=== PATIENT | male | born 1945 | race American Indian/Alaskan Native ===

== ENCOUNTER 2016-09-19 16:20 | Emergency (ER) | payer MEDICARE ==
[2016-09-19 16:28] VITALS: BMI 35.5
[2016-09-19] MEDS ORDERED: Sodium Chloride 0.9% 1,000 ML IV ONE (16:58)
--- NOTE | 2016-09-19 17:08 | C.PDOC ---
History Of Present Illness <Alee Cherry - Last Filed: 09/19/16 18:58> <Jhonatan Pelayo - Last Filed: 09/19/16 20:10> Patient is a 71 year old male who presents to the ER with a complaint of sharp, non-radiating right abdominal pain intermittently since yesterday. Patient states he had abdominal surgery by Dr. Moe in June for hernia. Patient states he took 2 Advil yesterday and today, but felt no relief. Patient notes a recent change in diet for weight loss. Denies nausea, vomiting, diarrhea, groin pain, dysuria, or fever. (Alee Cherry) History Per: Patient History/Exam Limitations: no limitations Onset/Duration Of Symptoms: Days (Since yesterday), Intermittent Episodes Pain Scale Rating Of: 5 Location Of Pain/Discomfort: RLQ Radiation Of Pain To:: None Quality Of Discomfort: Sharp, Stabbing, "Pain" Associated Symptoms: denies: Fever, Nausea, Vomiting, Diarrhea, Constipation <Alee Cherry - Last Filed: 09/19/16 18:58> <Jhonatan Pelayo - Last Filed: 09/19/16 20:10> Time Seen by Provider: 09/19/16 16:48 Chief Complaint (Nursing): Abdominal Pain Past Medical History Reviewed: Historical Data, Nursing Documentation, Vital Signs - Medical History PMH: Asthma, CAD, Cardia Arrhythmia, Diabetes, HTN, Hypercholesterolemia Other Surgeries: incarcerated hernia repair Family History: States: Unknown Family Hx, Diabetes - Social History Hx Tobacco Use: No Hx Alcohol Use: No Hx Substance Use: No - Immunization History Hx Tetanus Toxoid Vaccination: No Hx Influenza Vaccination: Yes Hx Pneumococcal Vaccination: Yes <Alee Cherry - Last Filed: 09/19/16 18:58> <Jhonatan Pelayo - Last Filed: 09/19/16 20:10> Vital Signs: Last Vital Signs Temp 98.3 F 09/19/16 16:29 Pulse 67 09/19/16 16:29 Resp 18 09/19/16 16:29 BP 194/85 H 09/19/16 16:29 Pulse Ox 97 09/19/16 19:02 - [facility] Procedures CONTINUOUS INVASIVE MECHANICAL VENTILATION =/>96 CONSEC HRS (08/02/13) CORONAR ARTERIOGR-2 CATH (08/02/13) EXCISION OF LESSER OMENTUM, OPEN APPROACH (06/21/16) INSERT ENDOTRACHEAL TUBE (08/02/13) REPAIR ABDOMINAL WALL, OPEN APPROACH (06/21/16) REPAIR TRANSVERSE COLON, OPEN APPROACH (06/21/16) RT & LT HEART ANGIOCARD (08/02/13) RT/LEFT HEART CARD CATH (08/02/13) TEMPORARY TRACHEOSTOMY (08/02/13) VENOUS CATHETERIZATION NEC (08/02/13) Review Of Systems Constitutional: Negative for: Fever, Weakness, Malaise Cardiovascular: Negative for: Chest Pain, Palpitations Respiratory: Negative for: Cough, Shortness of Breath Gastrointestinal: Positive for: Abdominal Pain (RLQ). Negative for: Nausea, Vomiting, Diarrhea Genitourinary: Negative for: Dysuria, Hematuria, Penile Discharge, Scrotal Pain , Penile Pain Skin: Negative for: Rash Neurological: Negative for: Headache, Dizziness <Alee Cherry Last Filed: 09/19/16 18:58> Physical Exam - Physical Exam Appears: Well, Non-toxic, No Acute Distress Skin: Normal Color, Warm, Dry Head: Atraumatic, Normacephalic Eye(s): bilateral: Normal Inspection, EOMI Nose: Normal, No Flaring Oral Mucosa: Moist Neck: Normal ROM Chest: Symmetrical, No Tenderness Cardiovascular: Rhythm Regular, No Murmur Respiratory: Normal Breath Sounds, No Rales, No Rhonchi, No Wheezing Gastrointestinal/Abdominal: Bowel Sounds (Normal active), Soft, Tenderness ( mildly tender to RLQ with deep palpation), No Distention, No Guarding, No Hernia , Other (Umbilical surgical scar) Back: Normal Inspection Extremity: Bilateral: Atraumatic, Normal Color And Temperature, Normal ROM Neurological/Psych: Oriented x3, Normal Speech, Other (No focal deficits) <Alee Cherry Last Filed: 09/19/16 18:58> ED Course And Treatment - Laboratory Results Result Diagrams: 09/19/16 17:10 09/19/16 17:10 Lab Interpretation: No Acute Changes O2 Sat by Pulse Oximetry: 97 (Room air) Pulse Ox Interpretation: Normal <Alee Cherry Last Filed: 09/19/16 18:58> - Laboratory Results Result Diagrams: 09/19/16 17:10 09/19/16 17:10 - CT Scan/US CT abd/pelv. Other Rad Studies (CT/US): Read By Radiologist, Radiology Report Reviewed CT/US Interpretation: Right paramedial fat containing small hernia just superior to the right of the umbilicus. Progress Note: Pt was signed out to me at 7pm by Dr. Lockett/TAVIA Cherry to f/up CT scan of abdomen/pelvis. Pt is now asymptomatic. No abdomenal pain or tenderness. No hernia felt on my physical exam. Reassessment Condition: Improved <Jhonatan Pelayo E - Last Filed: 09/19/16 20:10> Medical Decision Making <Alee Cherry - Last Filed: 09/19/16 18:58> <Jhonatan Pelayo E - Last Filed: 09/19/16 20:10> Medical Decision Making: Impression: 71 year old male with RLQ abdominal pain Plan: * Abd/pelvis CT w/ IV contrast * Blood work * IV fluids * Toradol * Urinalysis Progress: Labs reviewed showing no leukocytosis or other abnormality. 183 UA still pending, CT performed and awaiting report [address] Case signed out to DR Pelayo pending CT and UA results (Alee Cherry) Disposition - Disposition Disposition Time: 19:00 - POA Present On Arrival: None <Alee Cherry - Last Filed: 09/19/16 18:58> Counseled Patient/Family Regarding: Studies Performed, Diagnosis, Need For Followup - Disposition Disposition Time: 20:07 <Jhonatan Pelayo - Last Filed: 09/19/16 20:10> - Disposition Referrals: Bruno Moe MD [Staff Provider] - Brandon Lou MD [Staff Provider] - Disposition: HOME/ ROUTINE Condition: IMPROVED Additional Instructions: Follow up with your doctor and your surgeon for further evaluation and treatment. Return to the ER if you develop fever, vomiting, worsening of symptoms or if you have any other concerns. Instructions: Ventral Hernia (ED) - Clinical Impression Clinical Impression: Resolved abdominal pain - Scribe Statement The provider has reviewed the documentation as recorded by the Scribe <Alee Cherry - Last Filed: 04/18/17 18:58> <Jhonatan Pelayo - Last Filed: 09/19/16 20:10> - Scribe Statement Calrton Huerta All medical record entries made by the Scribe were at my direction and personally dictated by me. I have reviewed the chart and agree that the record accurately reflects my personal performance of the history, physical exam, medical decision making, and the department course for this patient. I have also personally directed, reviewed, and agree with the discharge instructions and disposition. (Alee Cherry) Physician Patient Turnover Patient Signed Over To: Jhonatan Pelayo Handoff Comments: Pending CT and UA results, reeval and dispo <Alee Cherry - Last Filed: 09/19/16 18:58>
[2016-09-19 17:18] LABS: BASO % 0.5 % (0.0-2.0); EOS # 0.3 K/uL (0.0-0.7); EOS % 3.1 % (0.0-4.0); HEMATOCRIT 39.7 % (35.0-51.0); LYMPH # 1.8 K/uL (1.0-4.3); LYMPH % 22.2 % (20.0-40.0); MEAN CELL VOLUME 78.6 fL (80.0-94.0); MEAN CORPUSCULAR HEMOGLOBIN 25.1 pg (27.0-31.0); MEAN CORPUSCULAR HGB CONC 31.9 g/dL (33.0-37.0); MEAN PLATELET VOLUME 10.6 fL (7.2-11.7); MONO # 0.8 K/uL (0.0-0.8); MONO % 9.4 % (0.0-10.0); NRBC % 0.1 % (0.0-2.0); RED CELL DISTRIBUTION WIDTH 16.3 % (11.5-14.5); WHITE BLOOD COUNT 8.2 K/uL (4.8-10.8)
[2016-09-19] MEDS ORDERED: Sodium Chloride 0.9% 1,000 ML ONE (17:23)
[2016-09-19 18:02] LABS: CHLORIDE 100 mmol/L (98-107); POTASSIUM 4.3 mmol/L (3.6-5.2); SODIUM 138 mmol/L (132-148)
[2016-09-19 18:04] LABS: AST/SGOT 36 U/L (17-59); BILIRUBIN,TOTAL 0.5 mg/dL (0.2-1.3); CARBON DIOXIDE 26 mmol/L (22-30); GFR AFRICAN-AMERICAN > 60
[2016-09-19 18:05] LABS: ALB/GLOB RATIO 1.1 (1.0-2.1); ALKALINE PHOSPHATASE 50 U/L (38-126); ALT/SGPT 24 U/L (21-72); BLOOD UREA NITROGEN 12 mg/dL (9-20); GLUCOSE,RANDOM 109 mg/dL (75-110); TOTAL PROTEIN 7.3 g/dL (6.3-8.3)
[2016-09-19 19:11] LABS: RBC URINE < 1 /hpf (0-3); URINE BILIRUBIN NEGATIVE (NEGATIVE); URINE BLOOD NEGATIVE (NEGATIVE); URINE COLOR Colorless (YELLOW); URINE GLUCOSE (UA) NORMAL (Normal); URINE KETONE NEGATIVE (NEGATIVE); URINE LEUKOCYTE ESTERASE NEG Leu/uL (Negative); URINE PROTEIN NEGATIVE (NEGATIVE); URINE UROBILINOGEN NORMAL mg/dL (0.2-1.0); WBC URINE < 1 /hpf (0-5)
[2016-09-19 20:14] VITALS: PULSE 70; RESP 20; TEMP 98.2; O2SAT 96
[2016-09-19] MEDS ORDERED: Enalaprilat 2.5 MG/2 ML IVP STA (20:18)
[2016-09-19] MEDS ORDERED: Enalaprilat 2.5 MG/2 ML ONE (20:43)
[2016-09-19 20:56] VITALS: BP 155/73
--- NOTE | 2016-09-20 08:48 | CT ---
PROCEDURE: CT Abdomen and Pelvis with contrast HISTORY: RLQ pain, status post hernia repair in June 2016. COMPARISON: None. TECHNIQUE: CT scan of the abdomen and pelvis was performed after intravenous administration of contrast. Oral contrast was not administered. Coronal and sagittal reformatted images were obtained. Contrast dose: 100 mL Visipaque 320 Radiation dose: Total exam DLP = 1135.74 mGy-cm. This CT exam was performed using one or more of the following dose reduction techniques: Automated exposure control, adjustment of the mA and/or kV according to patient size, and/or use of iterative reconstruction technique. FINDINGS: LOWER THORAX: There is dependent atelectasis in both lung bases. LIVER: The liver is normal in size and there is diffuse low attenuation. No intrahepatic biliary ductal dilatation or focal lesion. GALLBLADDER AND BILE DUCTS: There are no calcified gallstones. PANCREAS: The pancreas is normal in size and there is homogeneous enhancement without focal mass or ductal dilatation. SPLEEN: The spleen is normal in size and there is homogeneous enhancement. No focal lesion. ADRENALS: Both adrenal glands are normal in size. There is a 2.5 cm nodule in the left adrenal gland. KIDNEYS AND URETERS: The kidneys are normal in size and there is homogeneous enhancement without hydronephrosis or focal mass. VASCULATURE: There are advanced atherosclerotic aortoiliac calcifications. No evidence of aortic aneurysm. BOWEL: The small bowel loops are normal in caliber. There is left colonic diverticulosis without CT evidence for acute diverticulitis. APPENDIX: Normal appendix. PERITONEUM: No free fluid. No free air. LYMPH NODES: No enlarged lymph nodes. BLADDER: The urinary bladder is well distended and normal in appearance. REPRODUCTIVE: Unremarkable. BONES: There is multilevel degenerative disc disease, worse at L2-3 with Schmorl's nodes and endplate sclerosis. No acute fracture. OTHER FINDINGS: There is a small sliding hiatal hernia. There is a supraumbilical right paramedian fat containing ventral hernia. IMPRESSION: 1. No acute abdominal or pelvic abnormality. Left colonic diverticulosis without CT evidence for acute diverticulitis. No CT evidence for acute appendicitis. 2. 2.5 cm left adrenal gland nodule is incompletely characterized in the absence of noncontrast images. A dedicated CT scan/MRI without and with intravenous contrast with adrenal gland protocol would be helpful for further characterization. 3. Small sliding hiatal hernia. Small supraumbilical right paramedian fat containing ventral hernia. A preliminary report was provided by [facility] services.
== END 2016-09-19 21:07 | disposition home or self-care (01) ==
LOC: C.ER 16:20
DX: R10.31 Right lower quadrant pain (principal); I10 Essential (primary) hypertension
CPT/HCPCS: 74177; 80053; 81001; 83690; 85025; 96361; 96374; 96375; 99285; J1885; J7040

== ENCOUNTER 2017-07-18 09:31 | Emergency (ER) | payer MEDICARE ==
[2017-07-18 09:31] VITALS: BMI 33.5
[2017-07-18 09:43] VITALS: RESP 18
[2017-07-18] MEDS ORDERED: Sodium Chloride 0.9% 1,000 ML IV ONE (10:29)
--- NOTE | 2017-07-18 10:50 | C.PDOC ---
History Of Present Illness 71 y/o male with PMHx of DM and HTN presents to ED with complaints of diarrhea since yesterday, with associated dizziness. Patient states yesterday he ate food and then few hours later, had multiple episodes of diarrhea and 1 episode of vomiting. He also reports during last BM noticing bright red blood. Patient reports he has an appointment with Dr. Lou in 2 days. Patient denies fever, chills, abdominal pain, rectal pain Time Seen by Provider: 07/18/17 10:02 Chief Complaint (Nursing): Abdominal Pain History Per: Patient History/Exam Limitations: no limitations Onset/Duration Of Symptoms: Days Current Symptoms Are (Timing): Still Present Past Medical History Reviewed: Historical Data, Nursing Documentation, Vital Signs Vital Signs: Last Vital Signs Temp 98 F 07/18/17 12:02 Pulse 70 07/18/17 12:02 Resp 18 07/18/17 12:02 BP 133/71 07/18/17 12:02 Pulse Ox 95 07/18/17 14:40 - Medical History PMH: Asthma, CAD, Cardia Arrhythmia, Diabetes, HTN, Hypercholesterolemia Surgical History: No Surg Hx - [facility] Procedures CONTINUOUS INVASIVE MECHANICAL VENTILATION =/>96 CONSEC HRS (08/02/13) CORONAR ARTERIOGR-2 CATH (08/02/13) EXCISION OF LESSER OMENTUM, OPEN APPROACH (06/21/16) INSERT ENDOTRACHEAL TUBE (08/02/13) REPAIR ABDOMINAL WALL, OPEN APPROACH (06/21/16) REPAIR TRANSVERSE COLON, OPEN APPROACH (06/21/16) RT & LT HEART ANGIOCARD (08/02/13) RT/LEFT HEART CARD CATH (08/02/13) TEMPORARY TRACHEOSTOMY (08/02/13) VENOUS CATHETERIZATION NEC (08/02/13) Family History: States: Diabetes - Social History Hx Tobacco Use: No Hx Alcohol Use: No Hx Substance Use: No - Immunization History Hx Tetanus Toxoid Vaccination: No Hx Influenza Vaccination: Yes Hx Pneumococcal Vaccination: Yes Review Of Systems Constitutional: Negative for: Fever, Chills Gastrointestinal: Positive for: Nausea, Vomiting, Diarrhea. Negative for: Abdominal Pain, Rectal Pain Musculoskeletal: Negative for: Back Pain Skin: Negative for: Rash Physical Exam - Physical Exam Appears: Non-toxic, No Acute Distress Skin: Warm, Dry, No Rash Head: Atraumatic, Normacephalic Eye(s): bilateral: Normal Inspection, EOMI Oral Mucosa: Moist Neck: Normal ROM, Supple Cardiovascular: Rhythm Regular, No Murmur Respiratory: Normal Breath Sounds, No Rales, No Rhonchi, No Wheezing Gastrointestinal/Abdominal: Soft, No Tenderness, No Mass, No Distention, No Guarding, No Rebound Extremity: Bilateral: Atraumatic, Normal Color And Temperature, Normal ROM Neurological/Psych: Oriented x3, Normal Speech Gait: Steady ED Course And Treatment - Laboratory Results Result Diagrams: 07/18/17 10:51 07/18/17 10:51 Lab Interpretation: No Changes Compared To Prior Results O2 Sat by Pulse Oximetry: 95 (RA) Pulse Ox Interpretation: Normal - CT Scan/US Abdomen/pelvis Other Rad Studies (CT/US): Read By Radiologist, Radiology Report Reviewed CT/US Interpretation: PROCEDURE: CT Abdomen and Pelvis with contrast. HISTORY : abd pain, diarrhea. COMPARISON: None. TECHNIQUE: Contrast dose: 100 mL Visipaque 320. Radiation dose: Total exam DLP = 1159.60 mGy-cm. This CT exam was performed using one or more of the following dose reduction techniques: Automated exposure control, adjustment of the mA and/or kV according to patient size, and/or use of iterative reconstruction technique. FINDINGS: LOWER THORAX : Minimal bibasilar dependent subsegmental atelectasis. LIVER: Unremarkable. No gross lesion or ductal dilatation. GALLBLADDER AND BILE DUCTS: Unremarkable. PANCREAS: Unremarkable. No gross lesion or ductal dilatation. SPLEEN: Unremarkable. ADRENALS: 2.5 cm stable left adrenal mass. Likely adenoma. KIDNEYS AND URETERS: 3 mm nonobstructing right lower pole renal calculus, not identified previously. VASCULATURE: Unremarkable. No aortic aneurysm. BOWEL: Sigmoid diverticulosis without evidence of diverticulitis. No abnormal bowel loops otherwise. No bowel obstruction. No mural thickening. APPENDIX: Normal appendix. PERITONEUM: Unremarkable. No free fluid. No free air. LYMPH NODES: Unremarkable. No enlarged lymph nodes. BLADDER: Suboptimally distended. Mural thickening, likely the result of inadequate distention. Nevertheless, correlate for possible cystitis. REPRODUCTIVE: Normal prostate. BONES: No acute fracture. Severe degenerative disc disease at L2-3 with grade 1 retrolisthesis and endplate sclerosis and multiple Schmorl' s nodes. OTHER FINDINGS: None. IMPRESSION: Thickened bladder wall, likely artifactual due to inadequate distention. Correlate for cystitis. No evidence of colitis or diverticulitis. Additional minor findings as above. The jimenez based on is altogether ulna reopened at hysterectomy or Medical Decision Making Medical Decision Making: Impression: Abdominal pain, nausea, diarrhea Plan: CT abdomen Pelvis, Blood work, UA ordered Progress: Labs reviewed, no acute changes compared to prior visits. CT shows Sigmoid diverticulosis without evidence of diverticulitis. No abnormal bowel loops otherwise. No bowel obstruction. No mural thickening. 1405 Patient reevaluated and is laying comfortably no stretcher in no distress. Abdomen remains soft. Patient has no fever and stable vital signs. Discussed results with patient, and copy of report was provided. Patient reports improvement of symptoms. Patient feels comfortable going home and will be discharged. Patient given follow up instructions. Instructed to return to ER if symptoms worsen or new symptoms arise. Disposition Counseled Patient/Family Regarding: Diagnosis, Need For Followup, Rx Given - Disposition Referrals: Brandon Lou MD [Staff Provider] - Disposition: HOME/ ROUTINE Disposition Time: 14:06 Condition: IMPROVED Additional Instructions: Your prescriptions sent to [facility] Copies of labs and CT report provided to you Take prescribed medication as directed Drink fluids to prevent dehydration. Try low-fat diet with increase in fluids such as sport drink, gelatin. Try soup, rice, bread, crackers, cereal, bananas to help with diarrhea. Avoid high sugar foods or drinks (soda and juice) , fatty foods Follow up with your primary medical doctor for further evaluation. Return to the emergency department at any time if symptoms persist or worsen. Prescriptions: Ondansetron ODT [Zofran ODT] 1 odt PO BID PRN #6 odt PRN Reason: Nausea/Vomiting Pantoprazole Sodium [Protonix] 20 mg PO DAILY #10 ect Instructions: Gastroenteritis (DC), Nutrition Tips for Relief of Diarrhea (DC) Forms: [facility] (Honduran) - POA Present On Arrival: None - Clinical Impression Clinical Impression: Gastroenteritis - PA / [employer] / Resident Statement MD/DO has reviewed & agrees with the documentation as recorded. - Scribe Statement The provider has reviewed the documentation as recorded by the Chito Lujan All medical record entries made by the Jonibjacklyn were at my direction and personally dictated by me. I have reviewed the chart and agree that the record accurately reflects my personal performance of the history, physical exam, medical decision making, and the department course for this patient. I have also personally directed, reviewed, and agree with the discharge instructions and disposition.
[2017-07-18 10:55] LABS: BASO % 0.3 % (0.0-2.0); EOS # 0.1 K/uL (0.0-0.7); EOS % 0.4 % (0.0-4.0); HEMOGLOBIN 11.4 g/dL (12.0-18.0); LYMPH # 1.6 K/uL (1.0-4.3); LYMPH % 13.1 % (20.0-40.0); MEAN CELL VOLUME 79.1 fL (80.0-94.0); MEAN CORPUSCULAR HEMOGLOBIN 26.6 pg (27.0-31.0); MEAN CORPUSCULAR HGB CONC 33.6 g/dL (33.0-37.0); MEAN PLATELET VOLUME 10.3 fL (7.2-11.7); MONO % 7.8 % (0.0-10.0); NEUT # 9.6 K/uL (1.8-7.0); NEUT % 78.4 % (50.0-75.0); RBC 4.28 Mil/uL (4.40-5.90); RED CELL DISTRIBUTION WIDTH 15.5 % (11.5-14.5); WHITE BLOOD COUNT 12.3 K/uL (4.8-10.8)
[2017-07-18] MEDS ORDERED: Sodium Chloride 0.9% 1,000 ML ONE (10:56)
[2017-07-18 11:03] LABS: SQUAMOUS EPITHIAL < 1 /hpf (0-5); URINE BACTERIA RARE (<OCC); URINE BILIRUBIN NEGATIVE (NEGATIVE); URINE BLOOD NEGATIVE (NEGATIVE); URINE CLARITY Hazy (Clear); URINE COLOR Yellow (YELLOW); URINE GLUCOSE (UA) NORMAL (Normal); URINE LEUKOCYTE ESTERASE NEG Leu/uL (Negative); URINE NITRATE NEGATIVE (NEGATIVE); URINE PROTEIN NEGATIVE (NEGATIVE); URINE UROBILINOGEN NORMAL mg/dL (0.2-1.0)
[2017-07-18 11:19] LABS: ALB/GLOB RATIO 1.1 (1.0-2.1); ALBUMIN 3.6 g/dL (3.5-5.0); ALT/SGPT 25 U/L (21-72); AST/SGOT 29 U/L (17-59); BLOOD UREA NITROGEN 16 mg/dL (9-20); CALCIUM 8.7 mg/dl (8.6-10.4); GFR AFRICAN-AMERICAN > 60; GFR NON-AFRICAN AMERICAN > 60; LIPASE 21 U/L (23-300)
[2017-07-18] MEDS ORDERED: Iodixanol 320 MG/ML 100 ML BOTTLE IV ONE (11:43)
[2017-07-18 12:03] VITALS: BP 133/71; PULSE 70; TEMP 98
--- NOTE | 2017-07-18 13:53 | CT ---
PROCEDURE: CT Abdomen and Pelvis with contrast HISTORY: abd pain, diarrhea COMPARISON: None. TECHNIQUE: Contrast dose: 100 mL Visipaque 320 Radiation dose: Total exam DLP = 1159.60 mGy-cm. This CT exam was performed using one or more of the following dose reduction techniques: Automated exposure control, adjustment of the mA and/or kV according to patient size, and/or use of iterative reconstruction technique. FINDINGS: LOWER THORAX: Minimal bibasilar dependent subsegmental atelectasis. LIVER: Unremarkable. No gross lesion or ductal dilatation. GALLBLADDER AND BILE DUCTS: Unremarkable. PANCREAS: Unremarkable. No gross lesion or ductal dilatation. SPLEEN: Unremarkable. ADRENALS: 2.5 cm stable left adrenal mass. Likely adenoma. KIDNEYS AND URETERS: 3 mm nonobstructing right lower pole renal calculus, not identified previously. VASCULATURE: Unremarkable. No aortic aneurysm. BOWEL: Sigmoid diverticulosis without evidence of diverticulitis. No abnormal bowel loops otherwise. No bowel obstruction. No mural thickening. APPENDIX: Normal appendix. PERITONEUM: Unremarkable. No free fluid. No free air. LYMPH NODES: Unremarkable. No enlarged lymph nodes. BLADDER: Suboptimally distended. Mural thickening, likely the result of inadequate distention. Nevertheless, correlate for possible cystitis. REPRODUCTIVE: Normal prostate BONES: No acute fracture. Severe degenerative disc disease at L2-3 with grade 1 retrolisthesis and endplate sclerosis and multiple Schmorl's nodes. OTHER FINDINGS: None. IMPRESSION: Thickened bladder wall, likely artifactual due to inadequate distention. Correlate for cystitis. No evidence of colitis or diverticulitis. Additional minor findings as above. The jimenez based on is altogether ulna reopened at hysterectomy or
[2017-07-18 14:08] VITALS: O2SAT 95
== END 2017-07-18 14:15 | disposition home or self-care (01) ==
LOC: C.ER 09:31
DX: K52.9 Noninfective gastroenteritis and colitis, unspecified (principal); E11.9 Type 2 diabetes mellitus without complications; E78.00 Pure hypercholesterolemia, unspecified; I10 Essential (primary) hypertension; I25.10 Atherosclerotic heart disease of native coronary artery without angina pectoris
CPT/HCPCS: 74177; 80053; 81001; 83690; 85025; 96361; 96374; 99284; J7040; Q9967